=== PATIENT | male | born 1950 | race Caucasian/White ===

== ENCOUNTER 2023-03-25 11:55 | Inpatient (IN) | payer MEDICARE, MEDICAID ==
[~2023-03-25] VITALS: Ht 160 cm; Wt 51.3 kg
[2023-03-25 12:01] VITALS: BP_SYST 105
[2023-03-25 12:46] LABS: BASOPHILS # (AUTO) 0.1 K/uL (0.0-0.2); BASOPHILS % (AUTO) 1.3 % (0.0-2.0); EOSINOPHILS # (AUTO) 0.3 K/uL (0.0-0.4); EOSINOPHILS % (AUTO) 4.6 % (0.0-4.0); HEMATOCRIT 39.7 % (36-54); HEMOGLOBIN 13.3 g/dL (14.0-18.0); LYMPHOCYTES # (AUTO) 2.3 K/uL (1.0-5.5); LYMPHOCYTES % (AUTO) 35.6 % (20.5-51.5); MEAN CORPUSCULAR HEMOGLOBIN 33 pg (27-31); MEAN CORPUSCULAR HGB CONC 34 % (32-36); MEAN CORPUSCULAR VOLUME 97 fL (79.0-98.0); MONOCYTES # (AUTO) 0.3 K/uL (0.0-1.0); MONOCYTES % (AUTO) 5.3 % (1.7-9.3); NEUTROPHILS # (AUTO) 3.4 K/uL (1.8-7.7); NEUTROPHILS % (AUTO) 53.2 % (40.0-70.0); PLATELET COUNT (AUTO) 305 K/uL (130-430); RED CELL DISTRIBUTION WIDTH 14.4 % (9.0-15.0); WHITE BLOOD COUNT (AUTO) 6.3 K/uL (4.8-10.8)
[2023-03-25 13:08] LABS: ANION GAP 7 (5-15); CALCIUM 9.4 mg/dL (8.4-11.0); CHLORIDE 102 mmol/L (98-107); CREATININE 0.52 mg/dL (0.55-1.30); GLUCOSE 171 mg/dL (70-99); UREA NITROGEN, BLOOD 18 mg/dL (8-21)
[2023-03-25 13:12] LABS: ALANINE AMINOTRANSFERASE 10 U/L (12-78); ALBUMIN 3.3 g/dL (3.4-4.8); ASPARTATE AMINOTRANSFERASE 10 U/L (10-37); TOTAL BILIRUBIN 0.4 mg/dL (0.0-1.0)
[2023-03-25 13:13] LABS: C-REACTIVE PROTEIN QUANT < 0.2 mg/dL (0-0.5)
[2023-03-25] MEDS ORDERED: MORPHINE 2 MG/ML INJ. SYRINGE IVP PRN ×2 (13:45)
[2023-03-25] MEDS ORDERED: VANCOMYCIN HCL 1,000 MG in NS 250 ML IV ONE (14:00)
[2023-03-25] MEDS ORDERED: VANCOMYCIN HCL 1000 MG/VIAL IV ONE (14:46)
[2023-03-25] MEDS ORDERED: INSU100I26 SQ (15:03)
[2023-03-25] MEDS ORDERED: MOM GT (15:03)
[2023-03-25] MEDS ORDERED: NUT.237L31 GT (15:03)
[2023-03-25] MEDS ORDERED: GLIM2TAB GT (15:03)
[2023-03-25] MEDS ORDERED: LISI-209 GT (15:03)
[2023-03-25] MEDS ORDERED: SSNOVOLOG SUBCUT (15:03)
[2023-03-25] MEDS ORDERED: METF-518 GT (15:03)
[2023-03-25] MEDS ORDERED: FER300L GT (15:03)
[2023-03-25] MEDS ORDERED: EMPA10TA GT (15:03)
[2023-03-25] MEDS ORDERED: ACET325T53 GT (15:03)
[2023-03-25] MEDS ORDERED: COLL100 GT (15:03)
[2023-03-25] MEDS: NACL 0.9% 1,000 ML IV SCH ×2 (15:04→21:45)
[2023-03-25 15:35] VITALS: BP_SYST 128
[2023-03-25 15:56] VITALS: BP_SYST 128
[2023-03-25 19:00] VITALS: BP_SYST 139
[2023-03-25 20:00] VITALS: BP_SYST 139
[2023-03-26 00:10] VITALS: BP_SYST 110
[2023-03-26] MEDS: NACL 0.9% 1,000 ML IV SCH ×3 (05:31→21:45)
[2023-03-26 08:00] VITALS: BP_SYST 147
[2023-03-26] MEDS ORDERED: HYDROcodone/ACETAMIN 5-325 MG TAB (NORCO/ VICODIN) GT PRN (08:45)
[2023-03-26] MEDS ORDERED: ACETAMINOPHEN 650 MG/20.3 ML UDC GT PRN (09:00)
[2023-03-26] MEDS ORDERED: D5W 1,000 ML IV PRN (09:00)
[2023-03-26] MEDS ORDERED: DEXTROSE 50%-WATER 50 ML DISP.SYRIN IVP PRN (09:00)
[2023-03-26] MEDS ORDERED: MILK OF MAGNESIA 30 ML UDC GT PRN (09:00)
[2023-03-26] MEDS ORDERED: GLUCOSE (DEXTROSE) ORAL GEL -Adults PO PRN (09:00)
[2023-03-26] MEDS: DOCUSATE SODIUM 100 MG/10 ML UDC GT SCH ×2 (09:41→20:46)
[2023-03-26] MEDS: lisinopriL 5 MG TABLET GT SCH ×2 (09:41→20:46)
[2023-03-26] MEDS: FERROUS SULFATE 300 MG/5 ML UDC GT SCH (09:43)
[2023-03-26 11:15] VITALS: BP_SYST 107
[2023-03-26] MEDS: VANCOMYCIN HCL 1,000 MG in NS 250 ML IV SCH (13:31)
[2023-03-26 15:02] VITALS: BP_SYST 94
[2023-03-26] MEDS: INSULIN REGULAR, HUMAN 100 UNITS/ML, 3 ML VIAL (humuLIN R) SUBCUT PRN ×2 (18:04→20:58)
[2023-03-26 20:00] VITALS: BP_SYST 111
[2023-03-26] MEDS: terbinafine HCL 30 GM CREAM.GM. TP SCH (21:00)
[2023-03-26 23:22] VITALS: BP_SYST 111
[2023-03-27 05:40] VITALS: BP_SYST 101
[2023-03-27] MEDS: NACL 0.9% 1,000 ML IV SCH ×3 (05:40→21:45)
[2023-03-27 06:24] LABS: BASOPHILS # (AUTO) 0.1 K/uL (0.0-0.2); BASOPHILS % (AUTO) 1.4 % (0.0-2.0); EOSINOPHILS # (AUTO) 0.3 K/uL (0.0-0.4); EOSINOPHILS % (AUTO) 4.6 % (0.0-4.0); HEMATOCRIT 35.8 % (36-54); LYMPHOCYTES # (AUTO) 2.7 K/uL (1.0-5.5); LYMPHOCYTES % (AUTO) 41.2 % (20.5-51.5); MEAN CORPUSCULAR HEMOGLOBIN 32 pg (27-31); MEAN CORPUSCULAR HGB CONC 33 % (32-36); MEAN CORPUSCULAR VOLUME 97 fL (79.0-98.0); MONOCYTES # (AUTO) 0.6 K/uL (0.0-1.0); MONOCYTES % (AUTO) 8.8 % (1.7-9.3); NEUTROPHILS # (AUTO) 2.9 K/uL (1.8-7.7); PLATELET COUNT (AUTO) 290 K/uL (130-430); RED BLOOD CELL COUNT(AUTO) 3.71 MIL/uL (4.2-6.2); RED CELL DISTRIBUTION WIDTH 14.5 % (9.0-15.0); WHITE BLOOD COUNT (AUTO) 6.5 K/uL (4.8-10.8)
[2023-03-27 06:40] LABS: ANION GAP 7 (5-15); CALCIUM 8.6 mg/dL (8.4-11.0); CHLORIDE 109 mmol/L (98-107); GLUCOSE 142 mg/dL (70-99); UREA NITROGEN, BLOOD 16 mg/dL (8-21)
[2023-03-27 08:05] VITALS: BP_SYST 104
[2023-03-27] MEDS: FERROUS SULFATE 300 MG/5 ML UDC GT SCH (08:58)
[2023-03-27] MEDS: DOCUSATE SODIUM 100 MG/10 ML UDC GT SCH ×4 (08:58→23:22)
[2023-03-27] MEDS: lisinopriL 5 MG TABLET GT SCH ×2 (09:00→21:00)
[2023-03-27] MEDS: terbinafine HCL 30 GM CREAM.GM. TP SCH ×2 (09:02→22:09)
[2023-03-27 12:00] VITALS: BP_SYST 112
[2023-03-27] MEDS: INSULIN REGULAR, HUMAN 100 UNITS/ML, 3 ML VIAL (humuLIN R) SUBCUT PRN ×3 (12:07→22:08)
[2023-03-27] MEDS: VANCOMYCIN HCL 1,000 MG in NS 250 ML IV SCH (14:16)
[2023-03-27 16:00] VITALS: BP_SYST 110
[2023-03-27 20:00] VITALS: BP_SYST 103
[2023-03-27 23:57] VITALS: BP_SYST 103
[2023-03-28] VITALS: BP_SYST 121
[2023-03-28 00:01] VITALS: BP_SYST 121
[2023-03-28 04:42] LABS: BASOPHILS # (AUTO) 0.1 K/uL (0.0-0.2); BASOPHILS % (AUTO) 0.8 % (0.0-2.0); EOSINOPHILS # (AUTO) 0.4 K/uL (0.0-0.4); EOSINOPHILS % (AUTO) 3.7 % (0.0-4.0); HEMATOCRIT 36.3 % (36-54); LYMPHOCYTES # (AUTO) 2.7 K/uL (1.0-5.5); MEAN CORPUSCULAR HEMOGLOBIN 32 pg (27-31); MEAN CORPUSCULAR HGB CONC 33 % (32-36); MEAN CORPUSCULAR VOLUME 96 fL (79.0-98.0); MONOCYTES # (AUTO) 0.9 K/uL (0.0-1.0); MONOCYTES % (AUTO) 8.8 % (1.7-9.3); NEUTROPHILS # (AUTO) 5.8 K/uL (1.8-7.7); NEUTROPHILS % (AUTO) 58.7 % (40.0-70.0); PLATELET COUNT (AUTO) 282 K/uL (130-430); RED BLOOD CELL COUNT(AUTO) 3.78 MIL/uL (4.2-6.2); RED CELL DISTRIBUTION WIDTH 14.5 % (9.0-15.0); WHITE BLOOD COUNT (AUTO) 9.8 K/uL (4.8-10.8)
[2023-03-28 05:28] LABS: ANION GAP 10 (5-15); CALCIUM 8.7 mg/dL (8.4-11.0); CHLORIDE 109 mmol/L (98-107); CREATININE 0.43 mg/dL (0.55-1.30); GLUCOSE 150 mg/dL (70-99); UREA NITROGEN, BLOOD 15 mg/dL (8-21)
[2023-03-28] MEDS: NACL 0.9% 1,000 ML IV SCH ×2 (05:44→09:42)
[2023-03-28 08:00] VITALS: BP_SYST 127
[2023-03-28] MEDS: FERROUS SULFATE 300 MG/5 ML UDC GT SCH (08:30)
[2023-03-28] MEDS: lisinopriL 5 MG TABLET GT SCH ×2 (08:31→20:26)
[2023-03-28] MEDS: terbinafine HCL 30 GM CREAM.GM. TP SCH ×2 (08:31→20:27)
[2023-03-28] MEDS: INSULIN REGULAR, HUMAN 100 UNITS/ML, 3 ML VIAL (humuLIN R) SUBCUT PRN ×3 (12:01→20:46)
[2023-03-28] MEDS: cefTRIAXone 1 GM in D5W 50 ML IV SCH (13:28)
[2023-03-28 13:43] VITALS: BP_SYST 107
[2023-03-28 18:31] VITALS: BP_SYST 104
[2023-03-28 20:00] VITALS: BP_SYST 127
[2023-03-28] MEDS ORDERED: POTASSIUM CHLORIDE 20 MEQ/PKT PACKET PO ONE (21:30)
[2023-03-29 01:39] VITALS: BP_SYST 115
[2023-03-29] MEDS: NACL 0.9% 1,000 ML IV SCH ×2 (04:58→08:34)
[2023-03-29 05:30] LABS: BASOPHILS # (AUTO) 0.1 K/uL (0.0-0.2); BASOPHILS % (AUTO) 1.2 % (0.0-2.0); EOSINOPHILS # (AUTO) 0.4 K/uL (0.0-0.4); EOSINOPHILS % (AUTO) 5.5 % (0.0-4.0); HEMOGLOBIN 10.7 g/dL (14.0-18.0); LYMPHOCYTES # (AUTO) 2.7 K/uL (1.0-5.5); LYMPHOCYTES % (AUTO) 40.5 % (20.5-51.5); MEAN CORPUSCULAR HEMOGLOBIN 32 pg (27-31); MEAN CORPUSCULAR HGB CONC 34 % (32-36); MEAN CORPUSCULAR VOLUME 96 fL (79.0-98.0); MONOCYTES # (AUTO) 0.6 K/uL (0.0-1.0); MONOCYTES % (AUTO) 8.9 % (1.7-9.3); NEUTROPHILS % (AUTO) 43.9 % (40.0-70.0); PLATELET COUNT (AUTO) 253 K/uL (130-430); RED BLOOD CELL COUNT(AUTO) 3.33 MIL/uL (4.2-6.2); WHITE BLOOD COUNT (AUTO) 6.8 K/uL (4.8-10.8)
[2023-03-29 05:38] LABS: ANION GAP 9 (5-15); CHLORIDE 113 mmol/L (98-107); CREATININE 0.35 mg/dL (0.55-1.30); GLUCOSE 108 mg/dL (70-99); UREA NITROGEN, BLOOD 11 mg/dL (8-21)
[2023-03-29] MEDS ORDERED: POTASSIUM CHLORIDE 20 MEQ/PKT PACKET PO ONE (07:00)
[2023-03-29] MEDS: DOCUSATE SODIUM 100 MG/10 ML UDC GT SCH (08:34)
[2023-03-29] MEDS: FERROUS SULFATE 300 MG/5 ML UDC GT SCH (08:37)
[2023-03-29] MEDS: lisinopriL 5 MG TABLET GT SCH (08:37)
[2023-03-29] MEDS ORDERED: POTASSIUM CHLORIDE 20 MEQ TAB.PRT.SR PO ONE (11:00)
[2023-03-29] MEDS: cefTRIAXone 1 GM in D5W 50 ML IV SCH (11:18)
[2023-03-29] MEDS: terbinafine HCL 30 GM CREAM.GM. TP SCH (11:41)
[2023-03-29] MEDS: INSULIN REGULAR, HUMAN 100 UNITS/ML, 3 ML VIAL (humuLIN R) SUBCUT PRN (11:44)
[2023-03-29 12:35] VITALS: BP_SYST 105
[2023-03-29 15:26] VITALS: BP_SYST 121
[2023-03-29 16:07] VITALS: BP_SYST 106
== END 2023-03-29 17:20 | DRG 300 ==
LOC: SED 11:55 → SMU 14:05
PROVIDERS: ADMIT Internal Medicine; ATTEND Internal Medicine
DX: E11.52 Type 2 diabetes mellitus with diabetic peripheral angiopathy with gangrene (principal); E44.0 Moderate protein-calorie malnutrition; I96 Gangrene, not elsewhere classified; B35.3 Tinea pedis; F03.90 Unspecified dementia, unspecified severity, without behavioral disturbance, psychotic disturbance, mood disturbance, and anxiety; E78.5 Hyperlipidemia, unspecified; Z79.1 Long term (current) use of non-steroidal anti-inflammatories (NSAID); Z79.4 Long term (current) use of insulin; Z79.899 Other long term (current) drug therapy; Z68.20 Body mass index [BMI] 20.0-20.9, adult
CPT/HCPCS: 36415; 71045; 78305-TC; 80048; 80053; 80202; 83605; 85025; 85610-TC; 85730-TC; 86140; 87040; 87081; 93005; 93923; 96365; 99285; A9503; J0696; J1815; J3370; J7030; J7050; J7060